=== PATIENT | female | born 1960 | race Caucasian/White ===

== ENCOUNTER 2017-06-10 05:52 | Day surgery (SDC) | payer OTHER ==
[~2017-06-10] VITALS: Ht 160 cm; Wt 65.9 kg
[2017-06-10 06:29] VITALS: Ht 160 cm; Wt 65.9 kg
--- NOTE | 2017-06-10 07:42 | OPPN ---
Date/Time of Note Date/Time of Note DATE: 06/10/17 TIME: 07:41 Operative Report Preoperative Diagnosis Abdominal pain Chronic heartburn Postoperative Diagnosis Gastroesophageal reflux disease Gastritis with erosions Operation/Procedure Performed Esophagogastroduodenoscopy and biopsy Provider: RON PARIS MD Estimated blood loss: none Transfusion Required: no Specimens Gastric mucosal biopsy Grafts/Implants: none Complications: no RON PARIS MD Jun 10, 2017 07:42
[2017-06-10] MEDS ORDERED: MIDAZOLAM 1 MG/ML 2 ML INJ ONE (07:47)
[2017-06-10] MEDS ORDERED: FENTAnyl 50 MCG/ML VIAL ONE (07:47)
[2017-06-10 08:00] VITALS: BP 147/58; PULSE 58; RESP 20
--- NOTE | 2017-06-10 08:55 | GILP ---
DATE OF PROCEDURE: 06/10/2017 NAME OF PROCEDURE: Esophagogastroduodenoscopy and biopsy. SURGEON: Arti Paulson MD PREOPERATIVE DIAGNOSES: 1. Abdominal pain. 2. Chronic heartburn. POSTOPERATIVE DIAGNOSES: 1. Gastroesophageal reflux disease. 2. Gastritis with erosions. 3. Gastric mucosal biopsies were taken for Helicobacter pylori test. INDICATION: The patient is a 56-year-old female patient who had upper abdominal pain and chronic heartburn, not responding to therapy. The patient was scheduled for endoscopy examination for further evaluation. The procedure and possible complications were well explained to the patient. She understood and consented to the procedure. DESCRIPTION OF PROCEDURE: Under influence of fentanyl and Versed, the gastroscope was carefully introduced into the esophagus. Under direct vision, it was advanced to the stomach, into the pylorus, into the duodenal bulb, and descending duodenum. FINDINGS: Esophagus, the patient had gastroesophageal reflux disease. Stomach, she had gastritis with erosions. Gastric mucosal biopsies were taken for Helicobacter pylori test. Duodenum was normal. She tolerated the procedure very well. There was no complication from the procedure. At the end of procedure, she was awake with stable vital signs and she was discharged home in the care of her family. Impression please see postop diagnoses. PLAN: 1. Pepcid 40 mg p.o. b.i.d. 2. Await Helicobacter pylori test report. Dictated By: MD GAVINO Frausto/[email or web address] /Document#: [id number]
== END 2017-06-10 17:04 | disposition home or self-care (01) ==
LOC: GIL 05:52
PROVIDERS: ATTEND Internal Medicine Gastroenterology
DX: K21.9 Gastro-esophageal reflux disease without esophagitis (principal); K29.60 Other gastritis without bleeding
CPT/HCPCS: 43239; 87081; J2250; J3010; Z7610